=== PATIENT | male | born 1990 | race African-American/Black ===

== ENCOUNTER 2019-06-21 16:47 | Emergency (ER) | payer SELFPAY ==
[~2019-06-21] VITALS: Ht 182.9 cm; Wt 129.5 kg
[2019-06-21 16:57] VITALS: Ht 182.9 cm; Wt 129.5 kg
[2019-06-21 21:15] VITALS: BP 139/88
== END 2019-06-21 21:15 | disposition home or self-care (01) ==
LOC: D.ER 16:47
DX: Z20.2 Contact with and (suspected) exposure to infections with a predominantly sexual mode of transmission (principal)